=== PATIENT | female | born 1955 | race Caucasian/White ===

== ENCOUNTER → 2024-05-04 08:06 | Outpatient (REF) | payer OTHER, SELFPAY | LOC: RCS 08:06 | PROVIDERS: ATTENDING PHYSICIAN Internal Medicine Cardiovascular Disease; FAMILY PHYSICIAN Internal Medicine Geriatric Medicine | DX: I25.10 Atherosclerotic heart disease of native coronary artery without angina pectoris (principal); I71.21 Aneurysm of the ascending aorta, without rupture | CPT/HCPCS: 93306 ==

== ENCOUNTER → 2024-05-11 07:50 | Outpatient (REF) | payer OTHER, SELFPAY | LOC: RAD 07:50 | PROVIDERS: ATTENDING PHYSICIAN Internal Medicine Cardiovascular Disease; FAMILY PHYSICIAN Internal Medicine Geriatric Medicine | DX: I71.20 Thoracic aortic aneurysm, without rupture, unspecified (principal); I25.10 Atherosclerotic heart disease of native coronary artery without angina pectoris | CPT/HCPCS: 71275; Q9967 ==

== ENCOUNTER → 2024-05-11 12:35 | Outpatient (REF) | payer OTHER, SELFPAY | LOC: WDC 12:35 | PROVIDERS: ATTENDING PHYSICIAN Internal Medicine Geriatric Medicine | DX: Z12.31 Encounter for screening mammogram for malignant neoplasm of breast (principal) | CPT/HCPCS: 77063; 77067 ==

== ENCOUNTER → 2024-06-05 06:36 | Day surgery (SDC) | payer OTHER, SELFPAY | LOC: GI 06:36 | PROVIDERS: ATTENDING PHYSICIAN Internal Medicine Gastroenterology | DX: Z12.11 Encounter for screening for malignant neoplasm of colon (principal); K63.5 Polyp of colon; K57.30 Diverticulosis of large intestine without perforation or abscess without bleeding; K64.8 Other hemorrhoids; Z86.010 Personal history of colon polyps | CPT/HCPCS: 45380; 88305 ==

== ENCOUNTER → 2024-08-31 09:16 | Outpatient (REF) | payer OTHER, SELFPAY | LOC: HWRAD 09:16 | PROVIDERS: ATTENDING PHYSICIAN Family Medicine; FAMILY PHYSICIAN Internal Medicine Geriatric Medicine | DX: R59.9 Enlarged lymph nodes, unspecified (principal) | CPT/HCPCS: 76882 ==

== ENCOUNTER 2024-11-13 06:23 | Day surgery (SDC) | payer OTHER, SELFPAY | END 2024-11-13 11:27 | LOC: GI 06:23 | PROVIDERS: ATTENDING PHYSICIAN Internal Medicine Gastroenterology; FAMILY PHYSICIAN Internal Medicine Geriatric Medicine | DX: R93.3 Abnormal findings on diagnostic imaging of other parts of digestive tract (principal); K22.89 Other specified disease of esophagus; K44.9 Diaphragmatic hernia without obstruction or gangrene; K21.9 Gastro-esophageal reflux disease without esophagitis; K22.70 Barrett's esophagus without dysplasia | CPT/HCPCS: 43239; 88305; 88342 ==

== ENCOUNTER 2025-01-01 06:24 | Day surgery (SDC) | payer OTHER, SELFPAY ==
[2024-12-25 08:44] LABS: Hematocrit 38.6 % (37.0-47.0); Hemoglobin 12.7 g/dL (12.0-16.0); Mean Corp Hgb Conc. 32.9 g/dL (33.0-37.0); Mean Corpuscular Hgb 30.1 pg (27.0-31.0); Mean Corpuscular Volume 91.5 fL (81.0-99.0); Mean Platelet Volume 11.7 fL (7.4-10.4); Platelet Count 225 10^3/uL (130-400); Red Blood Cell Count 4.22 10^6/uL (4.20-5.40); Red Cell Dist. Width 13.1 % (11.5-14.5); White Blood Cell Count 6.6 10^3/uL (4.8-10.8)
[2024-12-25 09:12] LABS: Blood Urea Nitrogen 20 mg/dl (7-17); Calcium 9.6 mg/dl (8.4-10.2); Carbon Dioxide 27 mmol/L (22-30); Chloride 106 mmol/L (98-107); Glucose 93 mg/dl (70-99); Potassium 4.2 mmol/L (3.5-5.1); Sodium 142 mmol/L (135-145); eGFR > 60.00
[2024-12-25 14:05] VITALS: BMI 22.8
[2025-01-01] VITALS (9 sets, daily range): BP systolic 114–128; BP diastolic 67–82; BMI 22.8
--- NOTE | 2025-01-01 12:04 | HP.FOC2 ---
Focused History & Physical
Chief Complaint
HPI:
Chief Complaint: Right inguinal hernia
HPI / Indication for Planned Procedure: 69-year-old female recently seen in outpatient surgical evaluation secondary to a history of right inguinal swelling. Swelling is present on the daily basis, awareness of the hernia being present and some
discomfort but no pain. No associated GI or symptoms.
Ultrasound confirmed probable fat-containing inguinal hernia. Past abdominal surgical history of having a transvaginal bladder suspension with mesh in 2019.
Relevant Past Medical History: Other (Osteopenia, right-sided hearing loss, hyperlipidemia, obesity)
Relevant Social History: Negative
Relevant Family History: Negative
Relevant Past Surgical History: Positive for (Tonsils, meniscus repair, bladder suspension with mesh, right ear implant for hearing)
Review of Systems
Review of Pertinent Systems: All Systems Negative
Medication
See Medication form for detailed medications: Yes
Medication List (including Herbals & OTC):
naproxen sodium 220 mg tablet (Aleve) 220 - 440 mg PO PRN PRN pain 02/04/23
Benefiber 1 dose PO DAILY 12/25/24
acetaminophen 500 mg tablet 1,000 mg PO Q6H PRN pain 12/25/24
aspirin 81 mg tablet,delayed release 81 mg PO DAILY 12/25/24
atorvastatin 40 mg tablet 40 mg PO DAILY 12/25/24
cholecalciferol (vitamin D3) 25 mcg (1,000 unit) tablet (Vitamin D3) 25 mcg PO DAILY 12/25/24
coenzyme Q10 100 mg capsule (CoQ-10) 200 mg PO DAILY 12/25/24
estradiol 0.01% (0.1 mg/gram) vaginal cream 1 g vaginal .2 X WEEK 12/25/24
omeprazole 40 mg capsule,delayed release 40 mg PO DAILY 12/25/24
semaglutide 1 mg/dose (4 mg/3 mL) subcutaneous pen injector (Ozempic) 1 mg SC QWEEK 12/25/24
Medications Reviewed: Yes
Allergies and Reactions
Patient has Allergies: Yes
Noted Allergies and Reactions:
Allergy/AdvReac Type Severity Reaction Status Date / Time
cat dander Allergy watery Verified 12/25/24 10:34
eyes/itching/hives
pollen extracts Allergy seasonal Verified 12/25/24 10:33
allergy
Pertinent Physical Exam
All Other Systems: Negative
Head/Neck: Normal
Lungs: Normal
Heart: Normal
Abdomen: Other (Reducible right inguinal hernia)
Extremities: Normal
Neurological: Normal
Diagnosis / Assessment
69-year-old female presenting for scheduled operative correction right inguinal hernia
Plan / Procedure
Robotic assisted laparoscopic repair of right inguinal hernia with mesh
Anesthesia/Sedation to be done by Anesthesia Provider: Yes
--- NOTE | 2025-01-01 12:06 | W.SUR.PREOP ---
Pre-Operative Surgical Note
-
I have examined this patient prior to the performance of the scheduled procedure.
The patient's condition is unchanged from the time of the current History and
Physical and the patient is able to undergo the scheduled procedure.
[2025-01-01] MEDS: TYLENOL 1000 MG PO (12:30)
[2025-01-01] MEDS: NORMOSOL-R/PLASMALYTE-A 1000 IV (12:41)
--- NOTE | 2025-01-01 14:14 | W.IMMPOSTOP ---
Surgical Immed Post Op Note
-
Primary Surgeon: Jorge Monge MD
Assisting Surgeon: Mu MARION; Clary Hernandez
Pre-op Diagnosis: Right inguinal hernia
Post-op Diagnosis: Right femoral hernia
Procedure Performed: Robotic assisted laparoscopic repair of right femoral hernia with mesh; 3D max large mid weight
Anesthesia Type: GETA +0.25% Marcaine
Specimen / Cultures: None
Estimated Blood Loss: 4 mL
Complications: None immediate
Operative Findings: Right femoral hernia. Indirect and direct space normal. 3D max large mid weight mesh repair secured to Efrain's ligament with 2 interrupted 2-0 Vicryl sutures.
--- NOTE | 2025-01-01 15:50 | OR.RPT ---
Operative Report
Operative Report
Date of operative procedure: 01/01/2025
Primary Surgeon: Jorge Monge MD
Assisting Surgeon: Mu MARION; Tigist Hernandez
Pre-op Diagnosis: Right inguinal hernia
Post-op Diagnosis: Right femoral hernia
Procedure Performed: Robotic assisted laparoscopic ANGELICA repair right femoral hernia with mesh; 3D max large mid weight
Anesthesia Type: GETA +0.25% Marcaine
Specimen / Cultures: None/none
Estimated Blood Loss: 4 mL
Complications: None immediate
Indications for operative procedure: The patient is a 69-year-old female recently seen in outpatient surgical evaluation secondary to a history of right inguinal swelling. Swelling is present on the daily basis, awareness of the hernia being
present and some discomfort but no pain. No associated GI or symptoms. Ultrasound confirmed probable fat-containing inguinal hernia which was also confirmed on examination. I reviewed with the patient treatment options and she wished to pursue
operative correction. Robotic assisted laparoscopic repair of right inguinal hernia with mesh was fully reviewed in detail with the patient preoperatively obtaining written informed consent.
Brief summary of operative Findings: Right femoral hernia. Indirect and direct space normal. 3D max large mid weight mesh repair secured to Efrain's ligament with 2 interrupted 2-0 Vicryl sutures. No incidental findings.
Operation detail: The patient was identified in the preoperative holding area. I confirmed the surgical site and side with the patient preoperatively which was then marked and initialed by myself. She was interviewed by the anesthesia and nursing
staff then brought back to the operating room. The patient was placed on the operating table in supine position. The bilateral upper extremities were carefully padded and tucked at the side utilizing the arm guard positioning system. Pneumatic
compression boots were on the bilateral lower extremities. Following induction of general endotracheal anesthesia the patient was administered Ancef 2 g IV for prophylactic antibiotic coverage. The patient's anterior abdominal wall was now widely
and sterilely prepped with ChloraPrep and then draped in the usual manner. The surgical timeout was completed and the procedure was confirmed.
I initially proceeded with Veress needle insufflation in the left subcostal midclavicular line location. Once insufflated to 12 mmHg pressure then a left midclavicular line 8 mm trocar was then placed. The robotic scope was inserted, there was no
evidence of iatrogenic injury from access. The Veress needle was withdrawn. An epigastric 8 mm trocar was placed just to the right of the midline. A right midclavicular line 8 mm trocar was placed. The patient was then transition into
Trendelenburg to expose the inguinal/pelvic space and the robot was docked.
At the surgeon console inspection of the pelvis identified the presence of a right femoral hernia. The indirect and direct space were normal. The left inguinal region was normal. There were no additional intra-abdominal findings.
I initially began with creation of a peritoneal flap at the level of the right ASIS to the right medial umbilical ligament. The preperitoneal plane was now established along the length of the flap and developed inferiorly down to the inguinal
space. The medial dissection proceeded until the notch of the pubic symphysis was exposed at the midline followed by Efrain's ligament on the right side. Efrain's ligament was now cleared through the direct and femoral space. The herniated
preperitoneal fat and peritoneum were reduced out of the femoral space. I had to slightly incise the medial portion of the lacunar ligament to allow for reduction of all of the entrapped preperitoneal fat in the femoral space. The underside of
Efrain's ligament was exposed as well. The peritoneal flap was now mobilized laterally down to the internal ring. At the level of the internal ring the round ligament was mobilized and carefully divided with monopolar cautery. The posterior
peritoneal dissection continued overlying the right iliac space to meet up with the previous more medial dissection. The dissection continued posterior laterally for full exposure of the myopectineal orifice. There was a small lipomatous protrusion
in the indirect inguinal space which was reduced and excised to facilitate mesh placement.
With the myopectineal orifice now completely exposed hemostasis was confirmed. A 3D max large mid weight mesh was utilized for repair. The mesh was positioned parallel to the ileopubic tract. It was secured at 2 separate locations inferior
medially on Efrain's ligament with 2 simple interrupted 2-0 Vicryl sutures. The patient was now begun to be taken out of Trendelenburg to confirm that the posterior aspect of the mesh was lying flat and that there was no shelling or undermining of
the mesh by the peritoneal edge. The peritoneal flap was now closed with a 2-0 Monocryl STRATAFIX spiral suture with a running Orland type stitch.
A flexible suction catheter was placed through an 8 mm trocar and introduced into the peritoneal flap to evacuate the air out of the preperitoneal space. This again confirmed good positioning of the inguinal hernia mesh. There was no shelling or
folding of the mesh and no undermining and mesh by the peritoneal edge. The peritoneal covering of the mesh was completely intact.
At this point the robot was undocked. All sponge instrument and needle counts were confirmed to be correct x 2. The CO2 insufflation was now carefully evacuated out of the abdominal cavity. The trocar sites were removed as well as the flexible
suction catheter. Skin was closed with 4-0 Monocryl. Sterile surgical glue dressings were applied. The patient tolerated the procedure well and was transferred to the recovery unit for routine postoperative monitoring. I was present for the
entirety of the operative procedure.
== END 2025-01-01 16:25 | disposition home or self-care (01) ==
LOC: SDS 06:24
PROVIDERS: ATTENDING PHYSICIAN Surgery; FAMILY PHYSICIAN Internal Medicine Geriatric Medicine
DX: K41.90 Unilateral femoral hernia, without obstruction or gangrene, not specified as recurrent (principal); M85.80 Other specified disorders of bone density and structure, unspecified site; E78.5 Hyperlipidemia, unspecified; E66.9 Obesity, unspecified; H91.91 Unspecified hearing loss, right ear; Z68.22 Body mass index [BMI] 22.0-22.9, adult
CPT/HCPCS: 49650; S2900; 36415; 80048; 85027; 93005; C1781

== ENCOUNTER → 2025-05-18 14:35 | Outpatient (REF) | payer OTHER, SELFPAY | LOC: WDC 14:35 | PROVIDERS: ATTENDING PHYSICIAN Obstetrics & Gynecology Gynecology; FAMILY PHYSICIAN Internal Medicine Geriatric Medicine | DX: Z12.31 Encounter for screening mammogram for malignant neoplasm of breast (principal) | CPT/HCPCS: 77063; 77067 ==

== ENCOUNTER → 2025-10-01 09:35 | Outpatient (REF) | payer OTHER, SELFPAY | LOC: WDC 09:35 | PROVIDERS: ATTENDING PHYSICIAN Obstetrics & Gynecology Gynecology | DX: N64.4 Mastodynia (principal) | CPT/HCPCS: 76642; 77061; 77065 ==